=== PATIENT | male | born 2000 | race African-American/Black ===

== ENCOUNTER 2020-12-15 23:03 | Emergency (ER) | payer MEDICAID ==
[~2020-12-15] VITALS: Ht 175.3 cm; Wt 59.3 kg
--- NOTE | 2020-12-17 14:01 | EKG ---
[facility] [address] [place], [place] [address] Signed Normal sinus rhythm with sinus arrhythmia Normal ECG No previous ECGs available Confirmed by CHERI ROJO DO ([id number]) on 12/17/2020 2:00:53 PM Electronically Signed By: CHERI ROJO DO 12/17/20 1401 PATIENT NAME: HOMER GILLESPIE Electrocardiogram DATE OF : [birth year] PHYSICIAN: CHERI ROJO DO REPORT #: [id number] REPORT IS CONFIDENTIAL AND NOT TO BE RELEASED WITHOUT AUTHORIZATION
== END 2020-12-15 23:45 | disposition home or self-care (01) ==
LOC: ED 23:03
DX: R55 Syncope and collapse (principal)
CPT/HCPCS: 93005; 93010; 99284-25